=== PATIENT | female | born 1970 | race Caucasian/White ===

== ENCOUNTER 2017-06-02 15:47 | Emergency (ER) | payer BC, OTHER | END 2017-06-02 17:24 | disposition home or self-care (01) | LOC: SCSER 15:47 | DX: J06.9 Acute upper respiratory infection, unspecified (principal); E11.649 Type 2 diabetes mellitus with hypoglycemia without coma; E78.5 Hyperlipidemia, unspecified; I10 Essential (primary) hypertension; J45.909 Unspecified asthma, uncomplicated; F32.9 Major depressive disorder, single episode, unspecified | CPT/HCPCS: J7620 ==

== ENCOUNTER 2017-06-04 15:27 | Emergency (ER) | payer BC, OTHER, SELFPAY ==
[2017-06-04] MEDS ORDERED: Sodium Chloride For Inhalation 0.9% 3 ML NEB ONE (15:55)
--- NOTE | 2017-06-04 16:11 | RAD ---
TWO VIEW CHEST SERIES 06/04/17 COMPARISON: 10/22/16 INDICATION: Cough. FINDINGS: There is a linear radiopaque density overlying the upper chest, base of neck and likely extrinsic art ifact. Correlate clinically. No consolidation, effusion or pneumothorax. The cardiac silhouette is stable. IMPRESSION: No focal consolidation. POS: [facility]
== END 2017-06-04 16:15 | disposition home or self-care (01) ==
LOC: SCSER 15:27
DX: J40 Bronchitis, not specified as acute or chronic (principal); E11.9 Type 2 diabetes mellitus without complications; E78.5 Hyperlipidemia, unspecified; F32.9 Major depressive disorder, single episode, unspecified; I10 Essential (primary) hypertension
CPT/HCPCS: 71046; 94640; J7620

== ENCOUNTER 2017-06-09 11:06 | Emergency (ER) | payer BC, OTHER, SELFPAY ==
[2017-06-09 12:05] LABS: #Basophils 0.1 thou/uL (0.0-0.2); #Eosinphils 0.1 thou/uL (0.0-0.7); #Lymphocytes 1.8 thou/uL (1.20-3.40); #Monocytes 0.6 thou/uL (0.11-0.59); #Neutrophils 4.9 thou/uL (1.40-6.50); %Basophils 1.2 % (0.0-1.0); %Eosinophils 1.5 % (0.0-10.0); %Lymphocytes 24.1 % (21.0-51.0); %Neutrophils 65.2 % (42.0-75.0); Hemoglobin 14.5 g/dL (12.0-16.0); Mean Corpuscular HGB CONC 32.1 g/dL (32.0-36.0); Mean Corpuscular Hemoglobin 28.7 pg (27.0-31.0); Mean Corpuscular Volume 89.4 fl (81.0-99.0); Mean Platelet Volume 6.8 fL (7.4-10.4); Platelet Count 320 thou/uL (130-400); RBC Distribution Width 12.3 % (11.5-14.5); Red Blood Cell (RBC) Count 5.05 mill/uL (4.20-5.40); White Blood Cell (WBC) Count 7.4 thou/uL (4.8-10.8)
[2017-06-09 12:38] LABS: ALT (SGPT) 27 U/L (8-55); AST (SGOT) 20 U/L (5-34); Albumin 4.2 g/dL (3.5-5.0); Alkaline Phosphatase 86 U/L (40-150); Anion Gap 14 mmol/L (10-20); BUN (Urea Nitrogen) 10 mg/dL (7.0-18.7); Bilirubin, Total 0.6 mg/dL (0.2-1.2); Calc. Creatinine Clearance 0 mL/min (70-130); Calcium 10.5 mg/dL (7.8-10.44); Carbon Dioxide 27 mmol/L (22-29); Chloride 101 mmol/L (98-107); Estimated GFR-MDRD Greater than 90; Globulin 3.1 g/dL (2.4-3.5); Glucose 140 mg/dL (70-105); Potassium 3.9 mmol/L (3.5-5.1); Protein, Total 7.3 g/dL (6.0-8.3); Sodium 138 mmol/L (136-145)
[2017-06-09 14:32] LABS: Bilirubin Negative (Negative); Blood, Urine Trace (Negative); Clarity CLEAR (Clear); Glucose, Urine (Dipstick) Negative (Negative); Leukocyte Negative (Negative); Nitrite Negative (Negative); Protein, Urine (Dipstick) Negative (Neg-Trace); Specific Gravity, Urine 1.013 (1.002-1.036); Urobilinogen 0.2 mg/dL (0.2-1.0)
[2017-06-09 14:54] LABS: Bacteria/HPF None Seen HPF (None Seen); Hyaline Casts/LPF 0-3 HYALINE CAST LPF (0-3 Hyaline); RBC/HPF 0-3 HPF (0-3); Squamous Epithelial None Seen HPF (0-3); WBC/HPF None Seen HPF (0-3)
[2017-06-09 15:17] LABS: CKMB 0.8 ng/mL (0-6.6); Troponin I Less than 0.010 ng/mL (< 0.028)
--- NOTE | 2017-06-27 22:09 | EKG ---
Test Reason : Blood Pressure : / mmHG Vent. Rate : 085 BPM Atrial Rate : 085 BPM P-R Int : 142 ms QRS Dur : 088 ms QT Int : 366 ms P-R-T Axes : 017 022 039 degrees QTc Int : 435 ms Sinus rhythm with Premature supraventricular complexes Otherwise normal ECG Confirmed by KAMRON MORILLO, AUNDREA ([id number]), research editor JAVIER ROSE ([id number]) on 06/27/2017 10:08:46 PM Referred By: Confirmed By:AUNDREA LUNDY MD
== END 2017-06-09 16:05 | disposition home or self-care (01) ==
LOC: ERS 11:06
DX: R53.1 Weakness (principal); E11.9 Type 2 diabetes mellitus without complications; E78.5 Hyperlipidemia, unspecified; I10 Essential (primary) hypertension; J45.909 Unspecified asthma, uncomplicated; F32.9 Major depressive disorder, single episode, unspecified
CPT/HCPCS: 36415; 36416; 80053; 81003; 81015; 82553; 84484; 85025; 93005

== ENCOUNTER 2017-06-23 13:17 | Emergency (ER) | payer OTHER, SELFPAY | END 2017-06-23 14:35 | disposition home or self-care (01) | LOC: SCSER 13:17 | DX: G89.29 Other chronic pain (principal); M25.511 Pain in right shoulder; E11.649 Type 2 diabetes mellitus with hypoglycemia without coma; E78.5 Hyperlipidemia, unspecified; I10 Essential (primary) hypertension; J45.909 Unspecified asthma, uncomplicated; F32.9 Major depressive disorder, single episode, unspecified | CPT/HCPCS: 99283 ==

== ENCOUNTER 2017-06-30 20:43 | Emergency (ER) | payer OTHER ==
[2017-06-30] MEDS ORDERED: Dexamethasone 10 MG/ML VIAL ONE (22:47)
[2017-06-30] MEDS ORDERED: Metoclopramide HCl 10 MG/2 ML VIAL ONE (22:47)
[2017-06-30] MEDS ORDERED: Ketorolac Tromethamine 30 MG/ML VIAL ONE (22:47)
== END 2017-06-30 23:52 | disposition home or self-care (01) ==
LOC: ERS 20:43
DX: R51 Headache (principal); E11.649 Type 2 diabetes mellitus with hypoglycemia without coma; E78.5 Hyperlipidemia, unspecified; I10 Essential (primary) hypertension; J45.909 Unspecified asthma, uncomplicated; F32.9 Major depressive disorder, single episode, unspecified
CPT/HCPCS: 96374; 96375; J1100; J1885; J2765

== ENCOUNTER 2017-07-07 20:53 | Emergency (ER) | payer OTHER ==
--- NOTE | 2017-07-07 21:56 | RAD ---
RIGHT SHOULDER: 07/07/17 Three views. HISTORY: Injury with right shoulder pain. No evidence of fracture or dislocation. AC joint is upper normal width but is normally aligned. IMPRESSION: No evidence of acute abnormality. POS: [facility]
== END 2017-07-07 22:14 | disposition home or self-care (01) ==
LOC: SCSER 20:53
DX: S46.911A Strain of unspecified muscle, fascia and tendon at shoulder and upper arm level, right arm, initial encounter (principal); G47.30 Sleep apnea, unspecified; E78.5 Hyperlipidemia, unspecified; E11.9 Type 2 diabetes mellitus without complications; I10 Essential (primary) hypertension; J45.909 Unspecified asthma, uncomplicated

== ENCOUNTER 2017-07-23 13:33 | Emergency (ER) | payer OTHER ==
--- NOTE | 2017-07-23 16:18 | RAD ---
TWO VIEWS CHEST: DATE: 07/23/17. PROVIDED CLINICAL HISTORY: Shortness of breath. FINDINGS: Comparison 06/04/17. Cardiac silhouette is unchanged in appearance. No focal consolidation, pleural f luid, or pneumothorax apparent. IMPRESSION: No evidence for an acute cardiopulmonary process. POS: [facility]
[2017-07-23 16:30] LABS: #Eosinphils 0.1 thou/uL (0.0-0.7); #Lymphocytes 1.2 thou/uL (1.20-3.40); #Monocytes 0.5 thou/uL (0.11-0.59); #Neutrophils 5.9 thou/uL (1.40-6.50); %Basophils 0.3 % (0.0-1.0); %Eosinophils 0.8 % (0.0-10.0); %Lymphocytes 15.9 % (21.0-51.0); %Monocytes 6.9 % (0.0-10.0); %Neutrophils 76.1 % (42.0-75.0); Hemoglobin 13.3 g/dL (12.0-16.0); Mean Corpuscular HGB CONC 32.9 g/dL (32.0-36.0); Mean Corpuscular Hemoglobin 29.2 pg (27.0-31.0); Mean Corpuscular Volume 88.7 fl (81.0-99.0); Mean Platelet Volume 7.6 fL (7.4-10.4); Platelet Count 268 thou/uL (130-400); RBC Distribution Width 11.9 % (11.5-14.5); Red Blood Cell (RBC) Count 4.55 mill/uL (4.20-5.40); White Blood Cell (WBC) Count 7.7 thou/uL (4.8-10.8)
[2017-07-23 16:56] LABS: ALT (SGPT) 25 U/L (8-55); AST (SGOT) 18 U/L (5-34); Alkaline Phosphatase 87 U/L (40-150); Anion Gap 12 mmol/L (10-20); BUN (Urea Nitrogen) 12 mg/dL (7.0-18.7); Bilirubin, Total 0.2 mg/dL (0.2-1.2); Calc. Creatinine Clearance 0 mL/min (70-130); Calcium 9.5 mg/dL (7.8-10.44); Carbon Dioxide 27 mmol/L (22-29); Chloride 99 mmol/L (98-107); Estimated GFR-MDRD Greater than 90; Globulin 3.1 g/dL (2.4-3.5); Glucose 116 mg/dL (70-105); Magnesium 1.8 mg/dL (1.6-2.6); Potassium 3.4 mmol/L (3.5-5.1); Protein, Total 7.1 g/dL (6.0-8.3); Sodium 135 mmol/L (136-145)
--- NOTE | 2017-07-25 17:05 | EKG ---
Test Reason : LIGHTHEADED Blood Pressure : / mmHG Vent. Rate : 090 BPM Atrial Rate : 090 BPM P-R Int : 140 ms QRS Dur : 084 ms QT Int : 364 ms P-R-T Axes : 036 031 042 degrees QTc Int : 445 ms Sinus rhythm with Premature atrial complexes Otherwise normal ECG Confirmed by BRYN ESPITIA D.O. ([id number]), commissioning editor JAVIER ROSE ([id number]) on 07/25/2017 5:04:37 PM Referred By: [facility] Confirmed By:BRYN ESPITIA D.O.
== END 2017-07-23 18:05 | disposition home or self-care (01) ==
LOC: ERS 13:33
DX: R42 Dizziness and giddiness (principal); I10 Essential (primary) hypertension; E78.5 Hyperlipidemia, unspecified; J45.909 Unspecified asthma, uncomplicated; E11.9 Type 2 diabetes mellitus without complications; F41.9 Anxiety disorder, unspecified; F32.9 Major depressive disorder, single episode, unspecified
CPT/HCPCS: 36415; 71046; 80053; 83735; 84443; 85025; 85379; 93005

== ENCOUNTER 2017-08-03 18:23 | Emergency (ER) | payer OTHER ==
--- NOTE | 2017-08-03 20:03 | RAD ---
LEFT KNEE FOUR VIEWS: History: Pain. Comparison: None. FINDINGS: No displaced fracture or malalignment. No significant joint effusion. IMPRESSION: No acute abnormality. POS: [facility]
== END 2017-08-03 20:09 | disposition home or self-care (01) ==
LOC: ERS 18:23
DX: M25.562 Pain in left knee (principal); G47.30 Sleep apnea, unspecified; E11.9 Type 2 diabetes mellitus without complications; E78.5 Hyperlipidemia, unspecified; I10 Essential (primary) hypertension; J45.909 Unspecified asthma, uncomplicated; F41.9 Anxiety disorder, unspecified; F32.9 Major depressive disorder, single episode, unspecified; Z79.899 Other long term (current) drug therapy; X50.1XXA Overexertion from prolonged static or awkward postures, initial encounter

== ENCOUNTER 2017-08-05 14:40 | Outpatient (CLI) | payer OTHER | END 2017-08-05 14:41 | disposition home or self-care (01) | LOC: BICRAD 14:40 | PROVIDERS: ATTEND Family Medicine | DX: W19.XXXD Unspecified fall, subsequent encounter (principal); M47.896 Other spondylosis, lumbar region | CPT/HCPCS: 72072; 72100 ==

== ENCOUNTER 2017-08-13 09:42 | Outpatient (CLI) | payer OTHER | END 2017-08-13 09:43 | disposition home or self-care (01) | LOC: TBSIIMAG 09:42 | PROVIDERS: ATTEND Orthopaedic Surgery | DX: M25.511 Pain in right shoulder (principal); M19.011 Primary osteoarthritis, right shoulder ==

== ENCOUNTER 2017-08-16 16:22 | Emergency (ER) | payer OTHER ==
--- NOTE | 2017-08-16 17:53 | RAD ---
TWO VIEWS CHEST: Date: 08-16-17 Comparison: 07-23-17 History: Ongoing chest pain and cough. FINDINGS: Mild stable interstitial prominence. Heart and mediastinal contours are stable. No pneumothorax, pleu ral fluid, focal consolidation or alveolar edema. IMPRESSION: No acute findings. POS: [facility]
--- NOTE | 2017-09-01 15:54 | EKG ---
Test Reason : Blood Pressure : / mmHG Vent. Rate : 083 BPM Atrial Rate : 083 BPM P-R Int : 160 ms QRS Dur : 088 ms QT Int : 376 ms P-R-T Axes : 048 030 041 degrees QTc Int : 441 ms Normal sinus rhythm Possible Left atrial enlargement Left axis deviation Poor anterior R wave progression Borderline ECG Confirmed by VALORIE MORILLO, JOSE ([id number]), rewrite editor JAVIER ROSE ([id number]) on 09/01/2017 3:53:37 PM Referred By: DR. EUGENE Confirmed By:JOSE EUGENE MD
== END 2017-08-16 18:12 | disposition left against medical advice (07) ==
LOC: SCSER 16:22
DX: Z77.098 Contact with and (suspected) exposure to other hazardous, chiefly nonmedicinal, chemicals (principal); R07.89 Other chest pain; R53.1 Weakness; R06.02 Shortness of breath; E11.9 Type 2 diabetes mellitus without complications; I10 Essential (primary) hypertension; J45.909 Unspecified asthma, uncomplicated; G47.30 Sleep apnea, unspecified; E03.9 Hypothyroidism, unspecified; E78.5 Hyperlipidemia, unspecified; F41.9 Anxiety disorder, unspecified; F32.9 Major depressive disorder, single episode, unspecified
CPT/HCPCS: 71046; 93005

== ENCOUNTER 2017-09-10 15:42 | Emergency (ER) | payer OTHER ==
[2017-09-10] MEDS ORDERED: Ondansetron ODT 4 MG TAB ONE (16:41)
[2017-09-10] MEDS ORDERED: Ketorolac Tromethamine 30 MG/ML VIAL ONE (16:41)
== END 2017-09-10 17:20 | disposition home or self-care (01) ==
LOC: SCSER 15:42
DX: M54.41 Lumbago with sciatica, right side (principal); E11.649 Type 2 diabetes mellitus with hypoglycemia without coma; E78.5 Hyperlipidemia, unspecified; I10 Essential (primary) hypertension; J45.909 Unspecified asthma, uncomplicated; G47.30 Sleep apnea, unspecified; F41.9 Anxiety disorder, unspecified; F32.9 Major depressive disorder, single episode, unspecified
CPT/HCPCS: 96372; J1885; Q0162

== ENCOUNTER 2018-01-13 12:34 | Outpatient (CLI) | payer OTHER ==
--- NOTE | 2018-01-13 14:08 | RAD ---
FRONTAL AND LATERAL IMAGING OF THE CHEST: DATE: 01/13/18. COMPARISON: 08/16/17. HISTORY: Dyspnea. FINDINGS: There is no pneumothorax, pleural fluid, focal consolidation, or alveolar edema. Heart and mediastin al contours are stable. Clips in right upper quadrant suggest prior cholecystectomy. IMPRESSION: Stable appearance of the chest - no acute findings. POS: [facility]
== END 2018-01-13 12:35 | disposition home or self-care (01) ==
LOC: RAD 12:34
PROVIDERS: ATTEND Internal Medicine Pulmonary Disease
DX: R06.00 Dyspnea, unspecified (principal)
CPT/HCPCS: 71046

== ENCOUNTER 2018-03-25 21:35 | Emergency (ER) | payer OTHER ==
[2018-03-25] MEDS ORDERED: Dexamethasone 4 mg/ml Vial ONE (22:03)
== END 2018-03-25 22:12 | disposition home or self-care (01) ==
LOC: ERS 21:35
DX: J45.901 Unspecified asthma with (acute) exacerbation (principal); E78.5 Hyperlipidemia, unspecified; E11.649 Type 2 diabetes mellitus with hypoglycemia without coma; I10 Essential (primary) hypertension; F41.9 Anxiety disorder, unspecified; F32.9 Major depressive disorder, single episode, unspecified; Z79.899 Other long term (current) drug therapy
CPT/HCPCS: 96374; J1100

== ENCOUNTER 2018-04-21 15:18 | Emergency (ER) | payer OTHER ==
[2018-04-21] MEDS ORDERED: predniSONE 20 MG TAB ONE (15:58)
== END 2018-04-21 16:47 | disposition home or self-care (01) ==
LOC: ERS 15:18
DX: J45.21 Mild intermittent asthma with (acute) exacerbation (principal); I10 Essential (primary) hypertension; G47.30 Sleep apnea, unspecified; E11.649 Type 2 diabetes mellitus with hypoglycemia without coma; E78.5 Hyperlipidemia, unspecified; F41.9 Anxiety disorder, unspecified; F32.9 Major depressive disorder, single episode, unspecified
CPT/HCPCS: 94640; J7506; J7620

== ENCOUNTER 2018-04-27 13:55 | Emergency (ER) | payer OTHER | END 2018-04-27 15:00 | disposition left against medical advice (07) | LOC: ERS 13:55 | DX: Z53.21 Procedure and treatment not carried out due to patient leaving prior to being seen by health care provider (principal) | CPT/HCPCS: 93005 ==

== ENCOUNTER 2018-07-06 17:45 | Emergency (ER) | payer OTHER, SELFPAY | END 2018-07-06 19:08 | disposition home or self-care (01) | LOC: ERS 17:45 | DX: J45.901 Unspecified asthma with (acute) exacerbation (principal); E11.9 Type 2 diabetes mellitus without complications; I10 Essential (primary) hypertension | CPT/HCPCS: 99284 ==

== ENCOUNTER 2018-08-24 12:44 | Outpatient (CLI) | payer OTHER | END 2018-08-24 12:45 | disposition home or self-care (01) | PROVIDERS: ATTEND Family Medicine | DX: R00.2 Palpitations (principal) | CPT/HCPCS: 93225; 93226 ==

== ENCOUNTER 2018-12-01 15:02 | Outpatient (CLI) | payer OTHER ==
--- NOTE | 2018-12-01 15:47 | RAD ---
THORACIC SPINE: Two views. 12/01/18 HISTORY: Thoracic pain. Thoracic vertebrae maintain normal height and alignment. Mild degenerative spurring. No lytic or liliana tic process. Slight curvature to the right in the AP projection. IMPRESSION: Mild degenerative change of the thoracic spine. POS: [facility]
--- NOTE | 2018-12-01 15:50 | RAD ---
TWO VIEWS LUMBAR SPINE: 12/01/18 HISTORY: Low back pain. Patient states fell and twisted back in September of this year. COMPARISON: 04/22/14. FINDINGS: There are five nonribbearing lumbar type vertebral bodies. There is slight right convexed curvature o f the lumbar spine similar to prior exam. There is motion present on the lateral view which is also u nder penetrated, but the vertebral body heights are within normal limits. There is minimal narrowing of the L5-S1 intervertebral disc space. No obvious fracture seen. There is no evidence of a subluxati on. Surgical clips overlie the right upper quadrant. IMPRESSION: Limited evaluation of the lateral projection due to motion and technique, but no obvious fracture is seen, and there is no vertebral body height loss present. There is no evidence of a subluxation. POS: [facility]
== END 2018-12-01 15:03 | disposition home or self-care (01) ==
LOC: BICRAD 15:02
PROVIDERS: ATTEND Chiropractor
DX: M54.5 Low back pain (principal); M54.6 Pain in thoracic spine; M47.814 Spondylosis without myelopathy or radiculopathy, thoracic region
CPT/HCPCS: 72070; 72100

== ENCOUNTER 2019-02-25 20:51 | Emergency (ER) | payer OTHER ==
[2019-02-25] MEDS ORDERED: Albuterol Sulfate 2.5 mg/3 ml Neb ONE (21:37)
== END 2019-02-25 23:06 | disposition home or self-care (01) ==
LOC: ERS 20:51
DX: J45.909 Unspecified asthma, uncomplicated (principal); E11.9 Type 2 diabetes mellitus without complications; K21.9 Gastro-esophageal reflux disease without esophagitis; E78.5 Hyperlipidemia, unspecified; I10 Essential (primary) hypertension; F32.9 Major depressive disorder, single episode, unspecified; Z79.899 Other long term (current) drug therapy
CPT/HCPCS: 93005; 94640; J7611; J7620

== ENCOUNTER 2019-05-12 12:37 | Outpatient (CLI) | payer OTHER ==
--- NOTE | 2019-05-12 15:08 | MMO ---
Bilateral MAMMO Bilat Screen [facility]. CLINICAL HISTORY: Patient is 48 years old and is seen for screening. The patient has no family history of breast cancer. The patient has no personal history of cancer. VIEWS: The views performed were: bilateral craniocaudal with tomosynthesis and bilateral mediolateral oblique with tomosynthesis. FILMS COMPARED: The present examination has been compared to prior imaging studies performed at [place] on 10/26/2015. This study has been interpreted with the assistance of computer-aided detection. MAMMOGRAM FINDINGS: There are scattered fibroglandular densities. There is a focal asymmetry measuring 6 millimeters seen in the CC view only seen in the posterior outer region of the left breast located 11 centimeters from the nipple. It has not significantly changed in size, but now it has a spiculated appearance. It is not identified in the LMLO view. In the right breast, there are no suspicious masses, calcifications or areas of architectural distortion. IMPRESSION: FOCAL ASYMMETRY IN THE LEFT BREAST REQUIRES ADDITIONAL EVALUATION. ADDITIONAL PROJECTIONS (LEFT CRANIOCAUDAL SPOT COMPRESSION MAGNIFICATION; LEFT MEDIOLATERAL; LEFT ROLLED LATERAL; AND LEFT ROLLED MEDIAL) ARE RECOMMENDED. AN ULTRASOUND EXAM IS RECOMMENDED IF NEEDED. ADDITIONAL IMAGING. THE RESULTS OF THIS EXAM WERE SENT TO THE PATIENT. ACR BI-RADS Category 0 - Incomplete: Need additional imaging evaluation. [facility] will notify the patient of the need for additional imaging services. MAMMOGRAPHY NOTE: 1. A negative mammogram report should not delay a biopsy if a dominant of clinically suspicious mass is present. 2. Approximately 10% to 15% of breast cancers are not detected by mammography. 3. Adenosis and dense breasts may obscure an underlying neoplasm. Reported by: DINH FONTANEZ MD Electonically Signed: [id number]
== END 2019-05-12 12:38 | disposition home or self-care (01) ==
LOC: BICMAMMO 12:37
PROVIDERS: ATTEND Family Medicine
DX: Z12.31 Encounter for screening mammogram for malignant neoplasm of breast (principal); N64.89 Other specified disorders of breast
CPT/HCPCS: 77063; 77067

== ENCOUNTER 2019-05-20 13:43 | Outpatient (CLI) | payer OTHER ==
--- NOTE | 2019-05-20 15:19 | MMO ---
Left Breast MAMMO Unilat Diag DDI LT+[facility]ERLY. CLINICAL HISTORY: Patient is 49 years old and is seen for diagnostic exam. The patient has no family history of breast cancer. The patient has no personal history of cancer. VIEWS: The views performed were: left craniocaudal with tomosynthesis; left mediolateral oblique with tomosynthesis; and left mediolateral with tomosynthesis. FILMS COMPARED: The present examination has been compared to prior imaging studies performed at 05/12/2019 and 05/20/2019. This study has been interpreted with the assistance of computer-aided detection. MAMMOGRAM FINDINGS: There are scattered fibroglandular densities. There are two new round masses with spiculated margins seen in the middle outer region of the left breast. IMPRESSION: NEW MASSES IN THE LEFT BREAST ARE SUSPICIOUS. AN ULTRASOUND-GUIDED BREAST BIOPSY IS RECOMMENDED. THE RESULTS OF THIS EXAM WERE SENT TO THE PATIENT. ACR BI-RADS Category 4 - Suspicious abnormality - biopsy should be considered MAMMOGRAPHY NOTE: 1. A negative mammogram report should not delay a biopsy if a dominant of clinically suspicious mass is present. 2. Approximately 10% to 15% of breast cancers are not detected by mammography. 3. Adenosis and dense breasts may obscure an underlying neoplasm. Reported by: CAM LEE MD Electonically Signed: [id number]
--- NOTE | 2019-05-20 15:49 | ULT ---
SONOGRAM LEFT BREAST: 05/20/19 HISTORY: Breast mass. Abnormal mammogram. FINDINGS: Sonographic evaluation of the lateral aspect of the left breast in region of mammographic abnormalit y shows two closely adjacent ill-defined hypoechoic masses with posterior shadowing. They are 0.9 cm and 0.7 cm greatest diameters. This is in the area of abnormality on corresponding mammograms. IMPRESSION: Hypoechoic suspicious masses at the lateral aspect of the left breast. BI-RADS 4: Suspicious Abnormal ity - Biopsy Should Be Considered Usually requires biopsy. Tissue sampling suggested. Sonographic guided needle biopsy of both of the hypoechoic masses at the lateral aspect of the left b reast is recommended. Findings were discussed with Dr. Mireles who will communicate to the patient for coordination of [facility] care. POS: [facility]
== END 2019-05-20 13:44 | disposition home or self-care (01) ==
LOC: BICMAMMO 13:43
PROVIDERS: ATTEND Family Medicine
DX: R92.8 Other abnormal and inconclusive findings on diagnostic imaging of breast (principal); N63.20 Unspecified lump in the left breast, unspecified quadrant
CPT/HCPCS: G0279

== ENCOUNTER → 2019-06-28 | Day surgery (SDC) | payer OTHER ==
--- NOTE | 2019-06-28 14:47 | ULT ---
SONOGRAM LEFT BREAST LIMITED: HISTORY: Mammographic abnormality. Breast masses. FINDINGS: Exam was originally scheduled as sonographic-guided biopsy up to adjacent breast masses at the latera l aspect of the left breast. There was difficulty in interaction with the patient leading up to the procedure. The hypoechoic sha dowing masses at the lateral aspect of the left breast were imaged, similar to the sonogram from 05/02. The procedure was explained to the patient, again with difficulty during the interaction. The patient decided to not have the procedure done today. IMPRESSION: Left breast biopsy not performed. The hypoechoic masses at the lateral aspect of the left breast are of great concern based on imagin g findings. Please consider surgical consultation for further care. Findings were discussed with Alysha at the office of Dr. Mireles at the time of this dictation. CODE CR POS: [facility]
== END ==
LOC: BICULT 13:04
PROVIDERS: ATTEND Family Medicine
DX: N63.20 Unspecified lump in the left breast, unspecified quadrant (principal); Z53.09 Procedure and treatment not carried out because of other contraindication; Z88.0 Allergy status to penicillin; Z88.1 Allergy status to other antibiotic agents; Z88.8 Allergy status to other drugs, medicaments and biological substances

== ENCOUNTER 2019-09-14 07:41 | Outpatient (CLI) | payer OTHER ==
[2019-09-14 12:03] LABS: #Basophils 0.1 thou/uL (0.0-0.2); #Eosinphils 0.1 thou/uL (0.0-0.7); #Lymphocytes 1.9 thou/uL (1.20-3.40); #Monocytes 0.5 thou/uL (0.11-0.59); #Neutrophils 5.2 thou/uL (1.40-6.50); %Eosinophils 1.5 % (0.0-10.0); %Lymphocytes 24.7 % (21.0-51.0); %Neutrophils 66.9 % (42.0-75.0); Hemoglobin 14.8 g/dL (12.0-16.0); Mean Corpuscular HGB CONC 32.4 g/dL (32.0-36.0); Mean Corpuscular Hemoglobin 30.4 pg (27.0-31.0); Mean Corpuscular Volume 93.7 fL (78.0-98.0); Mean Platelet Volume 8.3 fL (7.4-10.4); Platelet Count 227 thou/uL (130-400); RBC Distribution Width 12.7 % (11.5-14.5); Red Blood Cell (RBC) Count 4.87 mill/uL (4.20-5.40); White Blood Cell (WBC) Count 7.8 thou/uL (4.8-10.8)
[2019-09-14 12:23] LABS: Anion Gap 12 mmol/L (10-20); BUN (Urea Nitrogen) 13 mg/dL (9.8-20.1); Calc. Creatinine Clearance 0 mL/min (70-130); Calcium 9.7 mg/dL (7.8-10.44); Carbon Dioxide 31 mmol/L (22-29); Chloride 102 mmol/L (98-107); Estimated GFR-MDRD 81; Glucose 137 mg/dL (70-105); Potassium 4.2 mmol/L (3.5-5.1); Sodium 141 mmol/L (136-145)
== END 2019-09-14 07:42 | disposition home or self-care (01) ==
LOC: LABBT 07:41
PROVIDERS: ATTEND Specialist
DX: Z01.812 Encounter for preprocedural laboratory examination (principal); C50.412 Malignant neoplasm of upper-outer quadrant of left female breast; Z17.0 Estrogen receptor positive status [ER+]
CPT/HCPCS: 80048; 85025

== ENCOUNTER 2019-09-20 07:26 | Day surgery (SDC) | payer OTHER ==
[2019-09-14 11:53] VITALS: BMI 51.5
[2019-09-20] MEDS ORDERED: Bupivacaine 0.25% HCL 30 ML VIAL ONE (09:14)
[2019-09-20] MEDS ORDERED: Lidocaine 1% w/Epinephrine 1:100K 20 ML VIAL ONE ×2 (09:14→13:11)
--- NOTE | 2019-09-20 09:19 | NM ---
EXAM: NM Lymphoscintigraphy left breast PROVIDED CLINICAL HISTORY: Malignancy left breast FINDINGS: Approximately 420 uCi of technetium 99m filtered sulfur colloid was administered subcutaneously and i ntradermally in 4 separate aliquots in a left periareolar location. Immediate anterior and lateral imaging was performed. There is a focal area of increased uptake seen within the left axilla with an additional focus of activity seen in the left axilla only well appreciated on the lateral view. IMPRESSION: Foci of activity seen in the left axillary location likely corresponding to sentinel lymph node. Afte r demonstration of activity in the region of left axilla, the patient was transported to operating room for surgical excision.
[2019-09-20] MEDS ORDERED: Ketorolac Tromethamine 30 MG/ML VIAL ONE (09:32)
[2019-09-20] MEDS ORDERED: Acetaminophen 500 MG TAB ONE (09:32)
[2019-09-20] MEDS ORDERED: Isosulfan Blue 50 MG/5 ML VIAL ONE (10:49)
[2019-09-20] MEDS ORDERED: Succinylcholine Chloride 20 MG/ML 10 ml SYRINGE FS ONE (11:17)
[2019-09-20] MEDS ORDERED: PROPOFOL 200 MG/20 ML VIAL ONE (11:17)
[2019-09-20] MEDS ORDERED: EPHEDRINE 25 MG/5 ML SYRINGE ONE (11:17)
[2019-09-20] MEDS ORDERED: Dexamethasone 20 MG/5 ML VIAL ONE (11:17)
[2019-09-20] MEDS ORDERED: Ondansetron PF 4 MG/2 ML Vial ONE (11:17)
[2019-09-20] MEDS ORDERED: Lidocaine 1% PF 5 ML VIAL ONE (11:17)
[2019-09-20] MEDS ORDERED: Fentanyl 100 MCG/2 ML VIAL ONE (11:29)
[2019-09-20] MEDS ORDERED: Midazolam HCl 2 mg/2 ml Vial ONE (11:29)
[2019-09-20] MEDS ORDERED: Bupivacaine PF 0.5% 30 ML VIAL ONE (13:11)
--- NOTE | 2019-09-21 14:48 | HP ---
CHIEF COMPLAINT: Left breast cancer. HISTORY OF PRESENT ILLNESS: The patient is a morbidly obese 49-year-old white female. She had a mammogram in May, which showed 2 concerning lesions in the middle aspect of the lateral left breast. Subsequent ultrasound-guided biopsy was performed at [facility]. One of the lesions showed invasive ductal carcinoma. The other one showed only a tiny focus of invasive ductal carcinoma. The profile of the larger lesion was hormone receptor positive, HER2/saranya negative, grade 2. Genetic testing was ordered and subsequently revealed the patient is BRCA negative. I saw her in the office on August 09, and following extensive conversation, she elected to proceed with breast conservation surgery, which I thought was reasonable. Both of the lesions in the lateral left breast were visible on ultrasound. PAST MEDICAL HISTORY: 1. Restless legs syndrome. 2. Sleep apnea. 3. Carpal tunnel syndrome. 4. Osteoarthritis. 5. Depression. 6. Chronic sinusitis. 7. Hypertension. 8. History of duodenal ulcer. 9. Gastroesophageal reflux disease. 10. Hypothyroidism. 11. Prediabetes. 12. Morbid obesity. PAST SURGICAL HISTORY: 1. Ovarian cyst resection. 2. Endoscopic sinus surgery. 3. Tonsillectomy. 4. Cholecystectomy. 5. Surgery for a bone spur on her foot. MEDICATIONS: 1. ProAir. 2. Celebrex. 3. Breo Ellipta. 4. Metanx. 5. Savella. 6. Oxybutynin. 7. Gabapentin. 8. Losartan. 9. Synthroid. ALLERGIES: AVELOX, SPIRONOLACTONE, TIZANIDINE, AMOXICILLIN, TRAZODONE, AUGMENTIN, BACTRIM. PERSONAL AND SOCIAL HISTORY: She does not smoke. She does not drink alcohol. She is single with no children. REVIEW OF SYSTEMS: Otherwise unremarkable. FAMILY HISTORY: Noncontributory. PHYSICAL EXAMINATION: VITAL SIGNS: Her weight is 282 pounds with a BMI of 51.6. She is afebrile. Vital signs within normal limits. GENERAL: She is a well-developed, well-nourished, morbidly obese white female, in no acute distress. She is alert and oriented x3. HEAD, EYES, EARS, NOSE, AND THROAT: Unremarkable. NECK: Supple without mass or tenderness. LUNGS: Clear to auscultation throughout. CARDIAC: Regular rate and rhythm without murmur. ABDOMEN: Obese, but soft and nontender. BREASTS: Symmetrical in size. They are large and pendulous. There is no cutaneous or nipple related irregularity. There is no dominant palpable abnormality in either breast or axilla. Left breast ultrasound shows 2 separate nearly adjacent lesions at the 3 o'clock radian, the nearest of which was about These each measure under 1 cm in size. ASSESSMENT AND PLAN: The patient with 2 separate foci of invasive ductal carcinoma in the lateral aspect of the left breast. As mentioned, after discussing all surgical options, she has elected to proceed with breast conservation surgery. I recommend an ultrasound-guided needle-localized lumpectomy and sentinel lymph node biopsy. I have discussed the operation in detail with the patient as well as potential risks. She understands and agrees to proceed with surgery at this time. Job ID: [id number]
--- NOTE | 2019-09-21 14:48 | OP ---
DATE OF PROCEDURE: 09/20/2019 PREOPERATIVE DIAGNOSIS: Left breast cancer x2. POSTOPERATIVE DIAGNOSIS: Left breast cancer x2. PROCEDURES PERFORMED: Left axillary sentinel lymph node biopsy, left breast ultrasound-guided needle localization x2, left breast needle localized lumpectomy x2. ANESTHESIA: General endotracheal. INDICATIONS: The patient is a morbidly obese 49-year-old female. She was recently diagnosed with 2 separate foci of invasive ductal carcinoma in the lateral left breast. Both of these are about the 3 o'clock radian, but these areas are by about 4 or 5 cm. After discussing options, she has elected to proceed with breast conserving surgery. Preoperative lymphoscintigraphy was performed revealing left axillary sentinel lymph node presence. DESCRIPTION OF PROCEDURE: Informed consent was obtained, the patient was taken to the operating room and general endotracheal anesthesia was obtained with the patient in supine position. A 3 mL of Lymphazurin was infiltrated into the subdermal periareolar tissue on the left breast and massaged for 5 minutes. The left breast and axilla were then prepped with ChloraPrep and draped in sterile fashion. Attention was turned first to the axilla. A transverse incision was created and dissection was carried through skin and subcutaneous tissue into the axilla. Neoprobe was utilized to identify areas of maximum radio intensity. I was able to identify two distinct sentinel lymph nodes, each of which had blue-staining as well as radio activity. These were dissected circumferentially and all investing lymphatics were divided between clamps and silk ties. The node was then passed off the field for permanent evaluation. There was no further radioactivity within the axilla. The wound was closed in layers using 3-0 and 4-0 Monocryl suture. Additional local anesthetic was instilled during the course of closure. Attention was turned to the left breast. Ultrasound was performed to identify both areas of malignancy. Each of them was marked on the skin in a grid like fashion. They were not both exactly the 3 o'clock radian as the more medial lesion was slightly superior on the breast relative to the lateral. There is a line between the two lesions with somewhat oblique on the lateral breast. Ultrasound-guided needle localization was performed of both lesions, passing a Almond wire in a medial to lateral fashion through both malignancies. The lateral malignancy was much deeper within the breast and was the medial malignancy. An oblique lateral incision was created on the left breast incorporating both of the localizing wires. Dissection was carried through skin and subcutaneous tissue. Attention was turned first to the lateral lesion. Flaps were raised around the localizing wire. A wide core of tissue was dissected using ultrasound guidance during the course of the dissection to ensure appropriate margins. The specimen was removed intact. It was tagged for orientation and submitted for mammographic evaluation. This revealed that the lesion was present as well as the marking clip. Attention was then turned to the lateral lesion. This was much deeper. I dissected along the wire a little bit and then dissected a wide core of tissue around the wire. This was removed intact, tagged for orientation and submitted for specimen evaluation. This also demonstrated that the lesion and the clip were removed. It seemed as though the margin might be close on the lateral/deep aspect. I therefore dissected around the entire depth of the wound and additional margin of at least 5 or 6 mm. This was tagged for orientation and submitted for permanent evaluation. Meticulous hemostasis obtained with electrocautery. The wound was closed in layers with 3-0 and 4-0 Monocryl. Additional local anesthetic was infiltrated during closure. Dermabond was placed on the external aspect of both incisions. There were no complications. The patient tolerated the procedure well, was taken to recovery room in stable condition. Job ID: [id number]
== END 2019-09-20 17:15 | disposition home or self-care (01) ==
LOC: SDC 07:26
PROVIDERS: ATTEND Specialist
PROC: 0HBU0ZZ Excision of Left Breast, Open Approach (ICD-10-PCS; principal; 2019-09-20)
PROC: 07B60ZX Excision of Left Axillary Lymphatic, Open Approach, Diagnostic (ICD-10-PCS; principal; 2019-09-20)
DX: C50.412 Malignant neoplasm of upper-outer quadrant of left female breast (principal); E78.5 Hyperlipidemia, unspecified; K21.9 Gastro-esophageal reflux disease without esophagitis; M79.7 Fibromyalgia; M19.90 Unspecified osteoarthritis, unspecified site; K59.09 Other constipation; G25.81 Restless legs syndrome; F32.9 Major depressive disorder, single episode, unspecified; G47.30 Sleep apnea, unspecified; I10 Essential (primary) hypertension; E66.01 Morbid (severe) obesity due to excess calories; Z68.43 Body mass index [BMI] 50.0-59.9, adult; Z17.0 Estrogen receptor positive status [ER+]; Z79.899 Other long term (current) drug therapy; Z88.0 Allergy status to penicillin; Z88.1 Allergy status to other antibiotic agents; Z88.2 Allergy status to sulfonamides; Z88.8 Allergy status to other drugs, medicaments and biological substances
CPT/HCPCS: 76098; 78195; 88307; 88341; 88342; A9541; J0690; J1100; J1885; J2001; J2250; J2405; J2704; J3010; Q9968; S0020

== ENCOUNTER 2019-11-21 10:34 | Emergency (ER) | payer OTHER | END 2019-11-21 12:04 | disposition home or self-care (01) | LOC: ERS 10:34 | DX: R06.2 Wheezing (principal); R07.89 Other chest pain; E11.9 Type 2 diabetes mellitus without complications; K21.9 Gastro-esophageal reflux disease without esophagitis; I10 Essential (primary) hypertension; F32.9 Major depressive disorder, single episode, unspecified; E78.5 Hyperlipidemia, unspecified; Z79.899 Other long term (current) drug therapy ==

== ENCOUNTER 2020-04-04 13:41 | Emergency (ER) | payer OTHER ==
--- NOTE | 2020-04-04 14:38 | CT ---
CT of the cervical spine: 04/04/2020 COMPARISON: 09/24/2011 HISTORY: Injury, trauma, pain TECHNIQUE: Axial CT imaging at 2.5 mm intervals from the skull base through the lung apices without c ontrast. Coronal and sagittal reformatted imaging obtained. Findings the C1 ring, the occipital condyles, the dens, and the C1-2 articulation demonstrate no acut e findings. There is mild degenerative change at the atlantoaxial interspace. The craniocervical junction and the cervicothoracic junction appear intact. There is disc space narrowing with degenerative endplate change as well as anterior and posterior ost eophyte at the C5-6 and C6-7 levels. The visualized lung apices appear unremarkable. No displaced fracture or evidence of dislocation is seen. IMPRESSION: Degenerative change with no acute fracture or dislocation seen.
[2020-04-04] MEDS ORDERED: Acetaminophen 500 MG TAB ONE (14:52)
--- NOTE | 2020-04-04 15:03 | CT ---
CT BRAIN WITHOUT CONTRAST: Date: 04/04/2020 HISTORY: Injury, fall, headache. COMPARISON: 05/20/2016. FINDINGS: No evidence of acute infarct, hemorrhage, midline shift, or abnormal extra-axial fluid collections ar e seen. The ventricular size is normal and the basilar cisterns are patent. The bony calvarium is int act. The visualized paranasal sinuses and mastoid air cells are well aerated. IMPRESSION: No CT evidence of acute intracranial process. POS: [facility]
== END 2020-04-04 15:15 | disposition home or self-care (01) ==
LOC: ERS 13:41
DX: S09.90XA Unspecified injury of head, initial encounter (principal); S16.1XXA Strain of muscle, fascia and tendon at neck level, initial encounter; E11.9 Type 2 diabetes mellitus without complications; K21.9 Gastro-esophageal reflux disease without esophagitis; E78.5 Hyperlipidemia, unspecified; I10 Essential (primary) hypertension; J45.909 Unspecified asthma, uncomplicated; F41.9 Anxiety disorder, unspecified; F32.9 Major depressive disorder, single episode, unspecified; Z79.899 Other long term (current) drug therapy; W22.8XXA Striking against or struck by other objects, initial encounter
CPT/HCPCS: 70450; 72125

== ENCOUNTER 2020-04-20 18:18 | Emergency (ER) | payer OTHER ==
[2020-04-20 19:19] LABS: Bacteria/HPF None Seen HPF (None Seen); Bilirubin Negative (Negative); Blood, Urine 1+ (Negative); Clarity Clear (Clear); Glucose, Urine (Dipstick) Normal (Negative); Ketone, Urine Negative (Negative); Leukocyte Negative Leu/uL (Negative); Nitrite Negative (Negative); Protein, Urine (Dipstick) Negative (Neg-Trace); RBC/HPF 0-3 HPF (0-3); Specific Gravity, Urine 1.006 (1.002-1.036); Squamous Epithelial 0-3 HPF (0-3); Urobilinogen Normal mg/dL (Less than 2); WBC/HPF 0-3 HPF (0-3); pH, Urine 5.5 (5.0-9.0)
== END 2020-04-20 21:22 | disposition left against medical advice (07) ==
LOC: ERS 18:18
DX: R41.82 Altered mental status, unspecified (principal); E11.9 Type 2 diabetes mellitus without complications; K21.9 Gastro-esophageal reflux disease without esophagitis; E78.5 Hyperlipidemia, unspecified; I10 Essential (primary) hypertension; J45.909 Unspecified asthma, uncomplicated; E03.9 Hypothyroidism, unspecified; G47.30 Sleep apnea, unspecified; F32.9 Major depressive disorder, single episode, unspecified; F41.9 Anxiety disorder, unspecified
CPT/HCPCS: 36416; 81003; 81015; 87086; 99285

== ENCOUNTER 2021-05-10 09:24 | Outpatient (CLI) | payer OTHER | END 2021-05-10 09:25 | disposition home or self-care (01) | LOC: BICMAMMO 09:24 | PROVIDERS: ATTEND Internal Medicine Hematology & Oncology | DX: Z08 Encounter for follow-up examination after completed treatment for malignant neoplasm (principal); Z85.3 Personal history of malignant neoplasm of breast | CPT/HCPCS: 77066; G0279 ==

== ENCOUNTER 2022-03-06 18:38 | Emergency (ER) | payer OTHER ==
[~2022-03-06 18:38] MED LIST: Iopamidol-370 76% 500 ML 1 ML ONE
[2022-03-06] MEDS ORDERED: Ondansetron PF 4 MG/2 ML Vial ONE (19:47)
[2022-03-06 20:11] LABS: Bilirubin Negative (Negative); Blood, Urine 2+ (Negative); Clarity Clear (Clear); Glucose, Urine (Dipstick) Normal (Negative); Ketone, Urine Negative (Negative); Leukocyte Negative Leu/uL (Negative); Nitrite Negative (Negative); Protein, Urine (Dipstick) Negative (Neg-Trace); Specific Gravity, Urine 1.027 (1.002-1.036); Urobilinogen Normal mg/dL (Less than 2)
[2022-03-06 20:12] LABS: Bacteria/HPF None Seen HPF (None Seen); Calcium Oxalate Crystals 1+ HPF (None Seen); WBC/HPF 0-3 HPF (0-3)
[2022-03-06 20:29] LABS: #Basophils 0.1 thou/uL (0.0-0.2); #Eosinphils 0.1 thou/uL (0.0-0.7); #Lymphocytes 1.1 thou/uL (1.20-3.40); #Monocytes 0.4 thou/uL (0.11-0.59); #Neutrophils 5.2 thou/uL (1.40-6.50); %Basophils 0.7 % (0.0-1.0); %Lymphocytes 16.1 % (21.0-51.0); %Monocytes 6.2 % (0.0-10.0); Hemoglobin 12.9 g/dL (12.0-16.0); Mean Corpuscular HGB CONC 32.6 g/dL (32.0-36.0); Mean Corpuscular Hemoglobin 30.4 pg (27.0-31.0); Mean Corpuscular Volume 93.3 fL (78.0-98.0); Mean Platelet Volume 7.8 fL (7.4-10.4); Platelet Count 198 thou/uL (130-400); RBC Distribution Width 12.3 % (11.5-14.5); Red Blood Cell (RBC) Count 4.26 mill/uL (4.20-5.40); White Blood Cell (WBC) Count 6.9 thou/uL (4.8-10.8)
[2022-03-06 20:50] LABS: ALT (SGPT) 14 U/L (8-55); AST (SGOT) 11 U/L (5-34); Albumin 3.9 g/dL (3.5-5.0); Alkaline Phosphatase 47 U/L (40-110); Anion Gap 12 mmol/L (10-20); BUN (Urea Nitrogen) 15 mg/dL (9.8-20.1); Bilirubin, Total 0.3 mg/dL (0.2-1.2); Calc. Creatinine Clearance 0 mL/min (70-130); Calcium 9.1 mg/dL (7.8-10.44); Carbon Dioxide 28 mmol/L (22-29); Chloride 104 mmol/L (98-107); Estimated GFR 102; Globulin 2.1 g/dL (2.4-3.5); Glucose 155 mg/dL (70-105); Lipase 13 U/L (8-78); Potassium 4.3 mmol/L (3.5-5.1); Sodium 140 mmol/L (136-145)
== END 2022-03-06 21:39 | disposition home or self-care (01) ==
LOC: ERS 18:38
DX: R10.11 Right upper quadrant pain (principal); R10.12 Left upper quadrant pain; R11.0 Nausea; E11.9 Type 2 diabetes mellitus without complications; K21.9 Gastro-esophageal reflux disease without esophagitis; E78.5 Hyperlipidemia, unspecified; I10 Essential (primary) hypertension; J45.909 Unspecified asthma, uncomplicated; E03.9 Hypothyroidism, unspecified
CPT/HCPCS: 36415; 36416; 71045; 74177; 80053; 81003; 81015; 83605; 83690; 84484; 85025; 93005; 96360; J2405; Q9967

== ENCOUNTER 2022-05-13 10:10 | Outpatient (CLI) | payer OTHER | END 2022-05-13 10:11 | disposition home or self-care (01) | LOC: BICMAMMO 10:10 | PROVIDERS: ATTEND Internal Medicine Hematology & Oncology | DX: C50.912 Malignant neoplasm of unspecified site of left female breast (principal) | CPT/HCPCS: 77066; G0279 ==

== ENCOUNTER 2022-05-28 13:16 | Outpatient (CLI) | payer OTHER | END 2022-05-28 13:17 | disposition home or self-care (01) | LOC: RAD 13:16 | PROVIDERS: ATTEND Family Medicine | DX: R06.00 Dyspnea, unspecified (principal) | CPT/HCPCS: 71046 ==

== ENCOUNTER 2023-05-14 13:08 | Outpatient (CLI) | payer OTHER | END 2023-05-14 13:09 | disposition home or self-care (01) | LOC: BICMAMMO 13:08 | PROVIDERS: ATTEND Internal Medicine Hematology & Oncology | DX: Z08 Encounter for follow-up examination after completed treatment for malignant neoplasm (principal); Z85.3 Personal history of malignant neoplasm of breast | CPT/HCPCS: 77066; G0279 ==

== ENCOUNTER 2023-06-04 13:06 | Emergency (ER) | payer SELFPAY ==
[2023-06-04 13:41] LABS: #Basophils 0.1 thou/uL (0.0-0.2); #Eosinphils 0.1 thou/uL (0.0-0.7); #Monocytes 0.4 thou/uL (0.11-0.59); #Neutrophils 4.4 thou/uL (1.40-6.50); %Eosinophils 1.2 % (0.0-10.0); %Lymphocytes 18.7 % (21.0-51.0); %Monocytes 6.5 % (0.0-10.0); %Neutrophils 72.3 % (42.0-75.0); Hematocrit 42.7 % (36.0-47.0); Hemoglobin 14.2 g/dL (12.0-16.0); Mean Corpuscular HGB CONC 33.3 g/dL (32.0-36.0); Mean Corpuscular Hemoglobin 30.7 pg (27.0-31.0); Mean Corpuscular Volume 92.4 fl (78.0-98.0); Platelet Count 202 10x3/uL (130-400); Red Blood Cell (RBC) Count 4.62 mill/uL (4.20-5.40)
[2023-06-04 14:05] LABS: ALT (SGPT) 12 U/L (8-55); AST (SGOT) 14 U/L (5-34); Albumin 4.4 g/dL (3.5-5.0); Alkaline Phosphatase 47 U/L (40-110); Anion Gap 12 mmol/L (10-20); BUN (Urea Nitrogen) 12 mg/dL (9.8-20.1); Bilirubin, Total 0.3 mg/dL (0.2-1.2); Calc. Creatinine Clearance 0 mL/min (70-130); Calcium 9.2 mg/dL (7.8-10.44); Carbon Dioxide 28 mmol/L (22-29); Chloride 104 mmol/L (98-107); Estimated GFR 102; Globulin 2.5 g/dL (2.4-3.5); Glucose 130 mg/dL (70-105); Potassium 3.7 mmol/L (3.5-5.1); Protein, Total 6.9 g/dL (6.0-8.3); Sodium 140 mmol/L (136-145)
[2023-06-04 14:10] LABS: Troponin I Less than 0.010 ng/mL (< 0.028)
== END 2023-06-04 14:55 | disposition home or self-care (01) ==
LOC: ERS 13:06
DX: R55 Syncope and collapse (principal); R42 Dizziness and giddiness; E11.9 Type 2 diabetes mellitus without complications; K21.9 Gastro-esophageal reflux disease without esophagitis; E78.5 Hyperlipidemia, unspecified; I10 Essential (primary) hypertension; Z79.899 Other long term (current) drug therapy
CPT/HCPCS: 36415; 36416; 71045; 80053; 84484; 85025; 93005

== ENCOUNTER 2023-10-09 15:48 | Outpatient (CLI) | payer OTHER | END 2023-10-09 15:49 | disposition home or self-care (01) | LOC: BICRAD 15:48 | PROVIDERS: ATTEND Family Medicine | DX: M79.671 Pain in right foot (principal); M77.51 Other enthesopathy of right foot and ankle ==

== ENCOUNTER 2024-03-09 13:42 | Outpatient (CLI) | payer OTHER | END 2024-03-09 13:43 | disposition home or self-care (01) | LOC: MRI 13:42 | PROVIDERS: ATTEND Orthopaedic Surgery | DX: S46.011A Strain of muscle(s) and tendon(s) of the rotator cuff of right shoulder, initial encounter (principal) ==

== ENCOUNTER 2024-03-15 11:53 | Emergency (ER) | payer OTHER | END 2024-03-15 13:29 | disposition left against medical advice (07) | LOC: ERS 11:53 | DX: Z53.21 Procedure and treatment not carried out due to patient leaving prior to being seen by health care provider (principal) | CPT/HCPCS: 71045; 93005 ==

== ENCOUNTER 2024-04-12 11:56 | Emergency (ER) | payer OTHER ==
[2024-04-12 13:23] LABS: #Basophils 0.06 10x3/uL (0.0-0.2); %Basophils 1.1 % (0.0-1.0); %Eosinophils 2.2 % (0.0-10.0); %Lymphocytes 21.8 % (21.0-51.0); %Monocytes 7.8 % (0.0-10.0); %Neutrophils 66.7 % (42.0-75.0); Hematocrit 40.5 % (36.0-47.0); Hemoglobin 13.5 g/dL (12.0-16.0); Mean Corpuscular HGB CONC 33.3 g/dL (32.0-36.0); Mean Corpuscular Hemoglobin 30.2 pg (27.0-31.0); Mean Corpuscular Volume 90.6 fL (78.0-98.0); Mean Platelet Volume 9.8 fL (7.4-10.4); Platelet Count 208 10x3/uL (130-400); RBC Distribution Width 13.6 % (11.5-14.5); Red Blood Cell (RBC) Count 4.47 mill/uL (4.20-5.40)
[2024-04-12 13:43] LABS: ALT (SGPT) 13 U/L (8-55); AST (SGOT) 16 U/L (5-34); Albumin 3.9 g/dL (3.5-5.0); Alkaline Phosphatase 38 U/L (40-110); Anion Gap 12 mmol/L (10-20); BUN (Urea Nitrogen) 16 mg/dL (9.8-20.1); Bilirubin, Total 0.4 mg/dL (0.2-1.2); Calc. Creatinine Clearance 0 mL/min (70-130); Calcium 8.8 mg/dL (7.8-10.44); Carbon Dioxide 25 mmol/L (22-29); Chloride 105 mmol/L (98-107); Estimated GFR 102; Glucose 88 mg/dL (70-105); Magnesium 2.4 mg/dL (1.6-2.6); Potassium 4.1 mmol/L (3.5-5.1); Protein, Total 6.9 g/dL (6.0-8.3); Sodium 138 mmol/L (136-145)
[2024-04-12 13:44] LABS: Troponin I Less than 0.010 ng/mL (< 0.028)
== END 2024-04-12 14:30 | disposition home or self-care (01) ==
LOC: ERS 11:56
DX: R07.9 Chest pain, unspecified (principal); R55 Syncope and collapse; I10 Essential (primary) hypertension; E11.9 Type 2 diabetes mellitus without complications
CPT/HCPCS: 36415; 71045; 80053; 83735; 83880; 84484; 85025; 85379; 93005

== ENCOUNTER 2024-05-20 08:48 | Outpatient (CLI) | payer OTHER | END 2024-05-20 08:49 | disposition home or self-care (01) | LOC: BICMAMMO 08:48 | PROVIDERS: ATTEND Radiology Radiation Oncology | DX: Z08 Encounter for follow-up examination after completed treatment for malignant neoplasm (principal); Z85.3 Personal history of malignant neoplasm of breast | CPT/HCPCS: 77066; G0279 ==